=== PATIENT | female | born 1960 | race African-American/Black ===

== ENCOUNTER 2024-04-22 14:39 | Emergency (ER) | payer MEDICAID, OTHER ==
[~2024-04-22] VITALS: Ht 154.9 cm; Wt 73.0 kg
[~2024-04-22 14:39] MED LIST: NO MEDS TO REPORT
[2024-04-22 15:23] VITALS: O2SAT 99
[2024-04-22] MEDS ORDERED: LIDO700A15 TP (20:41)
[2024-04-22] MEDS ORDERED: MELO-104 MT (20:41)
[2024-04-22 20:52] VITALS: TEMP 36.83628; O2SAT 100
[2024-04-22 20:53] VITALS: BP 164/76; PULSE 64; RESP 18
[2024-04-22] MEDS: KETOROLAC 15MG/ML VIAL IM ONE (20:53)
== END 2024-04-22 20:56 | disposition home or self-care (01) ==
LOC: ER 14:49
DX: G89.29 Other chronic pain (principal); M54.9 Dorsalgia, unspecified; J45.909 Unspecified asthma, uncomplicated; F12.90 Cannabis use, unspecified, uncomplicated; Z90.49 Acquired absence of other specified parts of digestive tract; Z79.1 Long term (current) use of non-steroidal anti-inflammatories (NSAID)
CPT/HCPCS: 99283; 71045; 96372; J1885